=== PATIENT | male | born 1975 | race Caucasian/White ===

== ENCOUNTER 2021-08-29 13:40 | Outpatient (CLI) | payer OTHER, SELFPAY ==
--- NOTE | 2021-08-29 14:00 | PC.NURSE ---
Pt to room 210 amb. A&Ox3. Infusion plan of care discussed and consent read and signed. Pt has no questions or concerns. Oriented to room. Call [facility]well in reach. Reminded to call with needs.
[2021-08-29] MEDS: ACETAMINOPHEN 325 MG TABLET 650 MG PO (14:41)
[2021-08-29] MEDS: FAMOTIDINE 20 MG TABLET PO (14:41)
[2021-08-29] MEDS: diphenhydrAMINE HCl CAP 25 MG CAPSULE PO (14:42)
--- NOTE | 2021-08-29 15:32 | PC.NURSE ---
Patient IV infusion completed. IV removed, device intact. Pressure applied to removal site. Patient instructed on site care. Patient states understanding.
--- NOTE | 2021-08-29 15:56 | PC.NURSE ---
Patient denies side effects or weakness post infusion. This nurse escorted patient to front door. No signs of weakness observed.
== END 2021-08-29 13:41 | disposition home or self-care (01) ==
LOC: CHSLAB 13:43 → CHSTREATRM 14:06
PROVIDERS: PCP Family Medicine; Visit Provider Nurse Practitioner Family
DX: U07.1 COVID-19 (principal); E11.9 Type 2 diabetes mellitus without complications
CPT/HCPCS: 96365; A9270; M0239; M0245; Q0245

== ENCOUNTER 2024-03-25 14:46 | Outpatient (CLI) | payer OTHER, SELFPAY ==
[2024-03-25 15:02] LABS: Basophils Absolute Auto 0.04 K/mm3 (0.00-0.10); Basophils Percent Auto 0.5 % (0.0-1.0); Eosinophils Absolute Auto 0.17 K/mm3 (0.02-0.50); Eosinophils Percent Auto 2.3 % (1.0-6.0); Hematocrit 42.7 % (40.0-54.0); Hemoglobin 15.1 g/dL (14.0-18.0); Immature Granulocyte Absolute 0.06 K/mm3 (0.00-0.00); Immature Granulocyte Percent A 0.8 % (0.0-0.0); Lymphocytes Percent Auto 22.9 % (18.0-42.0); Mean Corpuscular HGB Conc 35.4 g/dL (32-36); Mean Corpuscular Hemoglobin 29.8 pg (27.0-31.0); Mean Corpuscular Volume 84.2 fL (78.0-102.0); Monocytes Absolute Auto 0.46 K/mm3 (0.10-0.90); Monocytes Percent Auto 6.2 % (2.0-11.0); Neutrophils Percent Auto 67.3 % (50.0-70.0); Platelet Count Result 231 K/mm3 (150-420); Red Blood Count 5.07 M/mm3 (4.70-6.10); Red Cell Distribution Width 12.9 % (11.6-14.4); White Blood Count 7.4 K/mm3 (4.8-10.8)
[2024-03-25 15:11] LABS: Hemoglobin A1C 6.9 % (<5.7)
[2024-03-25 15:35] LABS: Creatinine Urine 81.34 mg/dL (40-278)
[2024-03-25 15:36] LABS: MALB Creatinine Ratio 491.7 mg/g (0-30); Microalbumin Urine Random > 400.0 mg/L
[2024-03-25 15:47] LABS: Alanine Aminotransferase 44 U/L (16-63); Alkaline Phosphatase 73 U/L (46-116); Anion Gap 9 mmol/L (4-12); Aspartate Amino Transferase 21 U/L (15-37); Bilirubin,Total 0.5 mg/dL (0.00-1.00); Blood Urea Nitrogen 19 mg/dL (7-18); Calcium 9.4 mg/dL (8.5-10.1); Carbon Dioxide 28 mmol/L (21-32); Chloride 98 mmol/L (98-108); Cholesterol 184 mg/dL (0-200); Estimated Glomerular Filt Rate 57; Glucose 163 mg/dL (70-99); HDL Direct 44 mg/dL (40-60); LDL Cholesterol Calculated 71 mg/dL (<130); Osmolality Calculated 286 mOsm/kg (285-295); Sodium 135 mmol/L (136-145); Total Protein 7.3 g/dL (6.4-8.2); Triglycerides 344 mg/dL (0-150); Uric Acid 5.9 mg/dL (3.5-7.2)
[2024-03-25 15:55] LABS: Thyroid Stimulating Hormone Reflex 2.26 u/IU/mL (0.36-3.74)
== END 2024-03-25 14:47 | disposition home or self-care (01) ==
LOC: CHSLAB 14:48
PROVIDERS: PCP Family Medicine; Visit Provider Family Medicine
DX: M10.9 Gout, unspecified (principal); E03.9 Hypothyroidism, unspecified; E11.9 Type 2 diabetes mellitus without complications; I10 Essential (primary) hypertension
CPT/HCPCS: 36415; 80053; 80061; 82043; 83036; 84443; 84550; 85025

== ENCOUNTER → 2024-08-15 11:21 | Outpatient (REF) | payer OTHER, SELFPAY | LOC: ANHLAB 11:21 | PROVIDERS: Visit Provider Plastic Surgery | DX: L72.0 Epidermal cyst (principal); H05.811 Cyst of right orbit | CPT/HCPCS: 88305 ==

== ENCOUNTER 2025-04-21 08:57 | Outpatient (CLI) | payer OTHER, SELFPAY ==
--- OUTSIDE RECORDS SUMMARY | 2025-04-21 08:59 | XMS_ITS | Clinical Summary ---
Author Organization [facility] Address [address] [place] [address] Care Team Providers Care Senior Producer Name Role Phone Unavailable Primary Care Provider Unavailabl e Source Comments [facility],non-owned Affiliates and Associated Physician Practices is amultiple site organization consisting of ambulatory clinics and hospital sitesin [place], [place], [place] and [place]. This disclosure is being madepursuant to the Care Everywhere program and may not contain all information available regarding this patient. Last updated 05/21/18.[facility] Allergies No known active allergies Medications * Be aware that medications may not be up to date on this document. Alwaysverify current medications with the patient. LISINOPRIL PO Active SIMVASTATIN PO Activ e ALLOPURINOL PO Activ e naproxen (NAPROSYN) 500 MG tablet Take 1 Tab by mouth 2 times daily 60 Tab 7 Active Additional Information Patient not taking.Reported on 05/30/2017 HYDROcodone-acet aminophen (NORCO) 7.5-325 MG tablet Take 1 Tab by mouth every 6 hours as needed for Pain 30 Tab 7 Active Additional Information Patient not taking.Reported on 05/30/2017 methylPREDNISolo ne (MEDROL DOSEPAK) 4 MG tabletIndication s:Wheezing,Acute pharyngitis, unspecified etiology Take by mouth as directed 1 Each 7 Active Additional Information Patient not taking.Reported on 10/18/2017 Active Problems Problem Noted Date Diagnosed Date Sorethroat 05/30/2017 Resolved Problems Problem Noted Date Diagnosed Date Resolved Date Cough 05/30/2017 06/27/2017 Social History Tobacco Use Types Packs/Day Years Used Date Smoking Tobacco: Never Smokeless Tobacco: Never Alcohol Use Standard Drinks/Week Comments Yes 0 (1 standard drink = 0.6 oz pur e alcohol) social Sex and Gender Information Value Date Recorded Sex Assigned at Not on file Legal Sex Male 10:05 AM CDT Gender Identity Not on file Sexual Orientation Not on file Last Filed Vital Signs Vital Sign Reading Time Taken Comments Blood Pressure 142/82 10/18/2017 1:16 PM CARTON FORMING MACHINE HELPER Pulse 94 10/18/2017 1:16 PM CARTON FORMING MACHINE HELPER Temperature 37.4 C (99.3 F) 10/18/2017 1:16 PM CARTON FORMING MACHINE HELPER Respiratory Rate 20 10/18/2017 1:16 PM CARTON FORMING MACHINE HELPER Oxygen Saturation 99% 10/18/2017 1:16 PM CARTON FORMING MACHINE HELPER Inhaled Oxygen Concentration - - Weight 145.6 kg (321 lb) 10/18/2017 1:16 PM CARTON FORMING MACHINE HELPER Height 185.4 cm (6' 1) 10/18/2017 1:16 PM CARTON FORMING MACHINE HELPER Body Mass Index 42.35 10/18/2017 1:16 PM CARTON FORMING MACHINE HELPER Plan of Treatment Health Maintenance Due Date Last Done Comments COLOGUARD (AGES 45-75) - COL ON CA SCREENING 1977 COLON MONITORING 1977 COLONOSCOPY - COLON CA SCREENING 1977 CT COLONOGRAPHY - COLON CA SCREENING 1977 Colorectal Cancer Screening 1977 FIT - COLON CA SCREENING 1977 FLEX SIG - COLON CA SCREENING 1977 DTAP/TDAP/TD VACCINES (1 - Tdap) 1996 HEPATITIS B VACCINE (1 of 3 - 19+ 3-dose series) 1996 COVID-19 VACCINE ( - 2023-2 5 season) 2024 DEPRESSION SCREENING 08/31/2024 INFLUENZA VACCINE (#1) 2025 09/19/2016 ZOSTER VACCINE (1 of 2) 12/19/2027 HEPATITIS C SCREENING Completed 10/12/2024 HIV SCREENING Completed 10/12/2024 HIB VACCINE Aged Out No longer eligi ble based on patient's age to complete this topic HPV VACCINE Aged Out No longer eligi ble based on patient's age to complete this topic MENINGOCOCCAL (Group B) VACC INE SHARED DECISION-MAKING Aged Out No longer eligibl e based on patient's age to complete this topic MENINGOCOCCAL GROUPS A/C/Y/W VACCINE Aged Out No longer eligible b ased on patient's age to complete this topic PNEUMOCOCCAL VACCINE Aged Out No long er eligible based on patient's age to complete this topic Procedures Procedure Name Priority Date/Time Associated Diagnosis Comments HEPATITIS C ANTIBODY Routine 10/12/2024 3:32 PM CARTON FORMING MACHINE HELPER Screening examination for venereal disease HIV-1 HIV-2 ANTIBODY + HIV P24 AG PANEL Routine 10/12/2024 3:32 PM CARTON FORMING MACHINE HELPER Screening examination for venereal disease from Last 3 Months or Most Recently Relevant to Health Maintenance Results * HIV 1 & HIV 2 ANTIBODY (IN HOUSE) (10/12/2024 3:32 PM CARTON FORMING MACHINE HELPER) HIV1/2 Ab + P24 Ag NON-REACTI VE/NEGATIV E NON-REACTI VE/NEGATIV E 10/12/2024 4:47 PM CARTON FORMING MACHINE HELPER [facility] Blood BLOOD SPECIMEN / Unknown Venipuncture / Unknown 10/12/2024 3:32 PM CARTON FORMING MACHINE HELPER 10/12/2024 4:01 PM CARTON FORMING MACHINE HELPER Elisa Sterling MD LAB - CHEMISTRY ORDERABLES Fi nal Result Performing Organization Address [facility] de Phone Number [facility] [address] * HEPATITIS C ANTIBODY (10/12/2024 3:32 PM CARTON FORMING MACHINE HELPER) HCV Antibody Screen Non Reactive Non Reactive 10/12/2024 4:47 PM CARTON FORMING MACHINE HELPER [facility] Blood BLOOD SPECIMEN / Unknown Venipuncture / Unknown 10/12/2024 3:32 PM CARTON FORMING MACHINE HELPER 10/12/2024 4:02 PM CARTON FORMING MACHINE HELPER Narrative [facility] - 10/12/2024 4:47 PM CARTON FORMING MACHINE HELPER Non Reactive - Antibodies to Hepatitis C virus (HCV) were not detected, result does not exclude early acute HCV infection. Elisa Sterling MD LAB - CHEMISTRY ORDERABLES Fi nal Result Performing Organization Address City/[facility]/ZIP Co de Phone Number [facility] [address] from Last 3 Months or Most Recently Relevant to Health Maintenance Insurance SELF PAY NO INSURANCE Member Subscriber Plan / Payer (Ef fective for All Dates) Name:Kishan Mcgrath Member ID:Not on file Relation to Subscriber:Not on file Name:KISHAN MCGRATH Subscriber ID:Not on file (Home) Address: [address] [place] [address] Payer ID:Not on file Group ID:Not on file Type:Self Pay Address: [place], [place] [facility] Address: [facility] [address] [place] [address] [employer]
--- OUTSIDE RECORDS SUMMARY | 2025-04-21 08:59 | XMS_ITS | Clinical Summary ---
Author Organization [facility] Address [address] [place] [address] Care Team Providers Care Will Call Order Clerk Name Role Phone Unavailable Primary Care Provider Unavailabl e Social History Tobacco Use Types Packs/Day Years Used Date Smoking Tobacco: Never Assessed Sex and Gender Information Value Date Recorded Sex Assigned at Not on file Legal Sex Male 9:35 PM CDT Gender Identity Not on file Sexual Orientation Not on file Plan of Treatment Health Maintenance Due Date Last Done Comments Colorectal Cancer Screening Colonoscopy (10 Years) 1977 Annual Physical 1980 Hepatitis C 12/19/1995 DTaP, Tdap and Td Vaccines ( 1 - Tdap) 1996 Hepatitis B Vaccines (1 of 3 - 19+ 3-dose series) 1996 COVID-19 Vaccine (2023-2 5 season) 2024 Meningococcal B Vaccine Aged Out No l onger eligible based on patient's age to complete this topic Meningococcal Vaccine Aged Out No moe vanna eligible based on patient's age to complete this topic Pneumococcal Vaccine: Pediat rics (0 to 5 Years) and At-Risk Patients (6 to 49 Years) Aged Out No longer eligible b ased on patient's age to complete this topic RSV Immunizations Under 20 Months Aged Out No longer eligible based on patient's age to complete this topic
--- OUTSIDE RECORDS SUMMARY | 2025-04-21 08:59 | XMS_ITS | Clinical Summary ---
Author Organization [facility] Address [address] [place] [address] Care Team Providers Care Bordereau Clerk Name Role Phone Adeleabby Helder Mirandarish Primary Care Provider Social History Tobacco Use Types Packs/Day Years Used Date Smoking Tobacco: Never Assessed Personal Safety Answer Date Recorded Getting School Help Needed Not on file 04/29 Sex and Gender Information Value Date Recorded Sex Assigned at Not on file Legal Sex Male 9:37 AM CDT Gender Identity Not on file Sexual Orientation Not on file Plan of Treatment Health Maintenance Due Date Last Done Comments Colon Cancer Screening-Colonoscopy 1977 Depression Screening 1977 Hepatitis B Screening 12/19/1995 Regular Well Visit/Exam 18-64 12/19/1995 Covid-19 Vaccine (2023-2 5 season) 2024 12/13/2020, 11/15/2020 Influenza Vaccine (#1) 2025 09/19/2016 DTaP/Tdap/Td Vaccine (2 - Td or Tdap) 06/06/2029 06/06/2019 Hepatitis C Screening Completed 10/12/2024 Pneumococcal vaccine <65 Aged Out No longer eligible based on patient's age to complete this topic Procedures Procedure Name Priority Date/Time Associated Diagnosis Comments HEPATITIS C ANTIBODY Routine 10/12/2024 Screening examination for venereal disease from Last 3 Months or Most Recently Relevant to Health Maintenance Results * Hepatitis C antibody Blood (10/12/2024) SCRIBED HCV ab Non-reacti ve EXTERNAL LAB Blood 10/12/2024 us Elisa Sterling MD LAB MICROBIOLOGY - GENERAL OR DERABLES Final Result EXTERNAL LAB from Last 3 Months or Most Recently Relevant to Health Maintenance Care Teams Bordereau Clerk Relationship Specialty Start Date End Date Helder Ayala DO [facility] [place] [address] PCP - General Family Medicine 04/29/24
[2025-04-21 09:13] LABS: Hematocrit 42.4 % (40.0-54.0); Hemoglobin 14.7 g/dL (14.0-18.0); Immature Granulocyte Percent A 0.4 % (0.0-0.0); Lymphocytes Absolute Auto 1.86 K/mm3 (1.10-4.50); Mean Corpuscular HGB Conc 34.7 g/dL (32-36); Mean Corpuscular Hemoglobin 30.2 pg (27.0-31.0); Mean Corpuscular Volume 87.1 fL (78.0-102.0); Nucleated Red Blood Cells Absolute Auto 0.00 K/mm3 (0.00-0.00); Nucleated Red Blood Cells Perc 0.0 % (0-0.0); Platelet Count Result 214 K/mm3 (150-420); Red Blood Count 4.87 M/mm3 (4.70-6.10); White Blood Count 7.2 K/mm3 (4.8-10.8)
[2025-04-21 10:36] LABS: Alanine Aminotransferase 44 U/L (6-50); Albumin Level 4.7 g/dL (3.5-5.1); Alkaline Phosphatase 77 U/L (38-126); Anion Gap 11 mmol/L (4-12); Aspartate Amino Transferase 34 U/L (17-59); Bilirubin,Total 0.6 mg/dL (0.2-1.3); Blood Urea Nitrogen 17 mg/dL (9-20); Calcium 9.8 mg/dL (8.4-10.2); Carbon Dioxide 27 mmol/L (22-30); Chloride 100 mmol/L (98-107); Cholesterol 176 mg/dL (0-200); Estimated Glomerular Filt Rate 51; Glucose 235 mg/dL (65-110); HDL Direct 35 mg/dL; Osmolality Calculated 295 mOsm/kg (285-295); Potassium 4.4 mmol/L (3.4-5.0); Sodium 138 mmol/L (137-145); Total Protein 7.4 g/dL (6.3-8.2); Triglycerides 370 mg/dL (<150)
[2025-04-21 11:05] LABS: Thyroid Stimulating Hormone Reflex 2.850 uIU/mL (0.465-4.68)
== END 2025-04-21 08:58 | disposition home or self-care (01) ==
PROVIDERS: PCP Family Medicine; Visit Provider Family Medicine
DX: E03.9 Hypothyroidism, unspecified (principal); I10 Essential (primary) hypertension
CPT/HCPCS: 36415; 80053; 80061; 84443; 85025

== ENCOUNTER 2025-08-16 08:58 | Outpatient (CLI) | payer OTHER, SELFPAY ==
[2025-08-16 09:09] LABS: Hematocrit 45.4 % (40.0-54.0); Hemoglobin 15.9 g/dL (14.0-18.0); Immature Granulocyte Percent A 1.1 % (0.0-0.0); Lymphocytes Absolute Auto 2.39 K/mm3 (1.10-4.50); Mean Corpuscular HGB Conc 35.0 g/dL (32-36); Mean Corpuscular Hemoglobin 29.9 pg (27.0-31.0); Mean Corpuscular Volume 85.3 fL (78.0-102.0); Nucleated Red Blood Cells Absolute Auto 0.00 K/mm3 (0.00-0.00); Nucleated Red Blood Cells Perc 0.0 % (0-0.0); Platelet Count Result 234 K/mm3 (150-420); Red Blood Count 5.32 M/mm3 (4.70-6.10); White Blood Count 10.0 K/mm3 (4.8-10.8)
--- OUTSIDE RECORDS SUMMARY | 2025-08-16 09:40 | XMS_ITS | Clinical Summary ---
Author Organization [facility] [employer] Address [address] [place] [address] Care Team Providers Care Ripper Operator Name Role Phone Unavailable Primary Care Provider Unavailabl e Source Comments [facility] [employer],non-owned Affiliates and Associated Physician Practices is amultiple site organization consisting of ambulatory clinics and hospital sitesin [place], [place], [place] and [place]. This disclosure is being madepursuant to the Care Everywhere program and may not contain all information available regarding this patient. Last updated 18.[employer] Allergies No known active allergies Medications * [...] Comments Blood Pressure 142/82 10/18/2017 1:16 PM DRILLING MACHINE RUNNER Pulse 94 10/18/2017 1:16 PM DRILLING MACHINE RUNNER Temperature 37.4 C (99.3 F) 10/18/2017 1:16 PM DRILLING MACHINE RUNNER Respiratory Rate 20 10/18/2017 1:16 PM DRILLING MACHINE RUNNER Oxygen Saturation 99% 10/18/2017 1:16 PM DRILLING MACHINE RUNNER Inhaled Oxygen Concentration - - Weight 145.6 kg (321 lb) 10/18/2017 1:16 PM DRILLING MACHINE RUNNER Height 185.4 cm (6' 1) 10/18/2017 1:16 PM DRILLING MACHINE RUNNER Body Mass Index 42.35 10/18/2017 1:16 PM DRILLING MACHINE RUNNER Plan of Treatment Health Maintenance Due Date [...] of 3 - 19+ 3-dose series) 1996 DEPRESSION SCREENING 08/31/2024 COVID-19 VACCINE (1 - 2024-2 6 season) 2025 INFLUENZA VACCINE (#1) 2025 09/19/2016 ZOSTER VACCINE [...] HEPATITIS C ANTIBODY Routine 10/12/2024 3:32 PM DRILLING MACHINE RUNNER Screening examination for venereal disease HIV-1 HIV-2 ANTIBODY + HIV P24 AG PANEL Routine 10/12/2024 3:32 PM DRILLING MACHINE RUNNER Screening examination for venereal disease from Last 3 Months or Most Recently Relevant to Health Maintenance Results * HIV 1 & HIV 2 ANTIBODY (IN HOUSE) (10/12/2024 3:32 PM DRILLING MACHINE RUNNER) HIV1/2 Ab + P24 Ag NON-REACTI VE/NEGATIV E NON-REACTI VE/NEGATIV E 10/12/2024 4:47 PM DRILLING MACHINE RUNNER [facility] Blood BLOOD SPECIMEN / Unknown Venipuncture / Unknown 10/12/2024 3:32 PM DRILLING MACHINE RUNNER 10/12/2024 4:01 PM DRILLING MACHINE RUNNER Elisa Sterling MD LAB - CHEMISTRY ORDERABLES Fi nal Result Performing Organization Address [facility] de Phone Number [facility] [address] * HEPATITIS C ANTIBODY (10/12/2024 3:32 PM DRILLING MACHINE RUNNER) HCV Antibody Screen Non Reactive Non Reactive 10/12/2024 4:47 PM DRILLING MACHINE RUNNER [facility] Blood BLOOD SPECIMEN / Unknown Venipuncture / Unknown 10/12/2024 3:32 PM DRILLING MACHINE RUNNER 10/12/2024 4:02 PM DRILLING MACHINE RUNNER Narrative [facility] - 10/12/2024 4:47 PM DRILLING MACHINE RUNNER Non Reactive - Antibodies to Hepatitis C virus (HCV) were not detected, result does not exclude early acute HCV infection. Elisa Sterling MD LAB - CHEMISTRY ORDERABLES Fi nal Result Performing Organization Address City/[facility]/ZIP Co de Phone Number [facility] [address] from Last 3 Months or Most Recently Relevant to Health Maintenance Insurance SELF PAY NO INSURANCE Member Subscriber Plan / Payer (Ef fective for All Dates) Name:Kishan Mcgrath Member ID:Not on file Relation to Subscriber:Not on file Name:KISHAN MCGRATH Subscriber ID:Not on file (Home) Address: [address] [place] [address] Payer ID:Not on file Group ID:Not on file Type:Self Pay Address: [place], [place] [employer] [place] Address: [facility] [id number] [place] [address] [employer]
--- OUTSIDE RECORDS SUMMARY | 2025-08-16 09:40 | XMS_ITS | Clinical Summary ---
Author Organization [facility] Address [address] [place] [address] Care Team Providers Care Sr. Logistics Analyst Name Role Phone Adeleabby Helder Mirandarish Primary [...] Regular Well Visit/Exam 18-64 12/19/1995 Covid-19 Vaccine ( - 2024-2 6 season) 2025 12/13/2020, 11/15/2020 Influenza Vaccine (#1) 2025 09/19/2016 [...] Recently Relevant to Health Maintenance Care Teams Sr. Logistics Analyst Relationship Specialty Start Date End Date Helder Ayala DO [facility] [place] [address] PCP - General Family Medicine 04/29/24
--- OUTSIDE RECORDS SUMMARY | 2025-08-16 09:40 | XMS_ITS | Clinical Summary ---
Author Organization [facility] Address [address] [place] [address] Care Team Providers Care Livestock Trader Name Role Phone Unavailable Primary Care Provider [...] - 19+ 3-dose series) 1996 COVID-19 Vaccine ( - 2024-2 6 season) 2025 Influenza Adult (#1) 2025 Hepatitis A Vaccines Aged Out No long er eligible based on patient's age to complete this topic Meningococcal B Vaccine Aged Out No l [...]
[2025-08-16 09:54] LABS: Alanine Aminotransferase 29 U/L (6-50); Albumin Level 4.6 g/dL (3.5-5.1); Alkaline Phosphatase 118 U/L (38-126); Anion Gap 15 mmol/L (4-12); Aspartate Amino Transferase 20 U/L (17-59); Bilirubin,Total 0.8 mg/dL (0.2-1.3); Blood Urea Nitrogen 35 mg/dL (9-20); Calcium 9.9 mg/dL (8.4-10.2); Carbon Dioxide 22 mmol/L (22-30); Chloride 96 mmol/L (98-107); Estimated Glomerular Filt Rate 40; Glucose 476 mg/dL (65-110); Osmolality Calculated 305 mOsm/kg (285-295); Potassium 4.3 mmol/L (3.4-5.0); Sodium 133 mmol/L (137-145); Total Protein 7.3 g/dL (6.3-8.2)
== END 2025-08-16 08:59 | disposition home or self-care (01) ==
PROVIDERS: PCP Family Medicine; Visit Provider Family Medicine
DX: E11.9 Type 2 diabetes mellitus without complications (principal)
CPT/HCPCS: 36415; 80053; 83525; 83527; 85025